=== PATIENT | male | born 1990 | race Caucasian/White ===

== ENCOUNTER 2016-09-17 21:43 | Emergency (ER) | payer OTHER ==
[2016-09-17 22:38] LABS: PLATELET COUNT 277 x10^3mcL (130-400); RED CELL DISTRIBUTION WIDTH 12.6 % (11.5-14.5)
[2016-09-17 22:50] LABS: CALCIUM 9.2 mg/dL (8.5-10.1); CARBON DIOXIDE 23.7 mmol/L (21-32); CHLORIDE SERUM 103 mmol/L (98-107); CREATININE SERUM 0.7 mg/dL (0.7-1.3); GFR1 > 60 mL/min; GLUCOSE SERUM 129 mg/dL (74-106); POTASSIUM SERUM 3.7 mmol/L (3.5-5.1); SODIUM SERUM 142 mmol/L (136-145)
[2016-09-17 22:56] LABS: ALBUMIN 4.8 g/dL (3.4-5.0); ALKALINE PHOSPHATASE 107 U/L (46-116); ALT/SGPT 28 U/L (16-63); AMYLASE 65 U/L (25-115); AST/SGOT 15 U/L (15-37); LIPASE 100 IU/L (73-393)
[2016-09-17 22:58] LABS: BAND NEUTROPHIL 6 % (0-10); METAMYELOCTE 1 % (0-2); MONOCYTE 5 % (0-7); SEGMENTED NEUTROPHILS 85 % (37-75)
[2016-09-17 22:59] LABS: PLATELET MORPHOLOGY FEW LARGE PLATELETS; rbc morphology (normal/abnorm) NORMAL (NORMAL)
[2016-09-18 01:15] VITALS: BP 111/87
== END 2016-09-18 01:15 | disposition home or self-care (01) ==
LOC: ED 21:43
PROVIDERS: Emergency Medicine
DX: T62.91XA Toxic effect of unspecified noxious substance eaten as food, accidental (unintentional), initial encounter (principal); R11.2 Nausea with vomiting, unspecified
CPT/HCPCS: 83880; J1885; J2405; J2765; J7030

== ENCOUNTER 2019-03-13 21:20 | Emergency (ER) | payer OTHER ==
[~2019-03-13] VITALS: Ht 162.6 cm; Wt 78.5 kg
[2019-03-13 21:28] VITALS: Ht 162.6 cm; Wt 78.5 kg
[2019-03-14 00:26] VITALS: BP 114/57
== END 2019-03-14 00:26 | disposition home or self-care (01) ==
LOC: ED 21:20
DX: R11.2 Nausea with vomiting, unspecified (principal); R19.7 Diarrhea, unspecified; J06.9 Acute upper respiratory infection, unspecified
CPT/HCPCS: 87804; J0500; J1200; J1885; J2405; J2765; J7030